=== PATIENT | male | born 1955 | race Caucasian/White ===

== ENCOUNTER 2021-03-27 07:42 | Observation (INO) ==
--- NOTE | 2021-03-15 15:06 | PAT Medication Instructions ---
Medication Instructions Date of Service March 15, 2021 Home Medications amlodipine 10 mg PO QAM atorvastatin 10 mg PO HS bupropion HCl 150 mg PO BID buspirone 10 mg PO BID cholecalciferol (vitamin D3) [Vitamin D3] 125 mcg PO QAM escitalopram oxalate 10 mg PO HS furosemide 20 mg PO QAM insulin glargine [Lantus U-100 Insulin] 1 unit SUBCUT UD insulin lispro [Humalog KwikPen Insulin] 23 - 30 unit SUBCUT TID lactobacillus combination no.4 [Probiotic] 3,000 mmu cells PO QAM losartan 100 mg PO QAM metformin 500 mg PO BID semaglutide [Ozempic] 1 mg SUBCUT WK tamsulosin 0.4 mg PO BID Continue as directed semaglutide [Ozempic] 1 mg SUBCUT WK DO NOT take the morning of surgery cholecalciferol (vitamin D3) [Vitamin D3] 125 mcg PO QAM furosemide 20 mg PO QAM insulin lispro [Humalog KwikPen Insulin] 23 - 30 unit SUBCUT TID lactobacillus combination no.4 [Probiotic] 3,000 mmu cells PO QAM losartan 100 mg PO QAM metformin 500 mg PO BID Take morning of surgery With a small sip of water, OTHERWISE NOTHING TO EAT OR DRINK AFTER MIDNIGHT: amlodipine 10 mg PO QAM bupropion HCl 150 mg PO BID buspirone 10 mg PO BID tamsulosin 0.4 mg PO BID Take evening before surgery atorvastatin 10 mg PO HS bupropion HCl 150 mg PO BID buspirone 10 mg PO BID escitalopram oxalate 10 mg PO HS insulin glargine [Lantus U-100 Insulin] 1 unit SUBCUT UD insulin lispro [Humalog KwikPen Insulin] 23 - 30 unit SUBCUT TID metformin 500 mg PO BID tamsulosin 0.4 mg PO BID Insulin Dependent Diabetic Patients * Test your blood sugar the morning of surgery * If Blood Sugar is GREATER THAN 150, take HALF of your regular dose of: insulin glargine [Lantus U-100 Insulin] take 12 units * If Blood Sugar is LESS THAN 150, DO NOT TAKE ANY: insulin glargine [Lantus U- 100 Insulin] Other Notes If you have any questions please call us at [phone] or [phone] or [phone] or [phone]
--- NOTE | 2021-03-16 14:09 | Anesthesiology Consultation ---
Date of Service March 16, 2021 Assessment & Plan (1) Encounter for pre-operative examination: - COVID screening: Per assessment on 03/16: Travel screen negative, no known COVID-19 positive contacts or current COVID-19 related symptoms. Patient vaccinated. Surgeon arranging preop COVID testing. Awaiting results. - Check BSG AM DOS - Hx Glidescope intubation: Left knee I&D (06/27/18): Grade view 1, Glidescope#4 at [facility] - S/P Left TKA (03/08/16): SAB at L4-L5 (x1 attempt) + PNB at [facility] - PCP office visit (03/13/21): "Reports that home lood sugars have been stable mostly in low 100's for past week but prior to that had been in elevated 300's. Today is 206. He has been limiting breads and sugars.. Increase glipizide to 2x daily with meals. Continue Metformin with NAC. We discussed carb reduction and Mediterranean diet. May have to discuss further medication for DM if glucose is not better controlled with current regimens. Continue following with orthopedic for left hipwe did discuss A1c may need to decrease before surgery will be done." Hgba1c significantly improved on 03/16/21 labs at 6.4% Chart Review Chart Review: Acceptable Risk for Surgery and Patient seen in Pre Admission Testing Teaching & Discussion Pre-Anesthesia Teaching/Discussion Notes: Instructed NPO after midnight before surgery,except medications with 15 cc of water. Medication instructions provided according to the PAT guidelines. History Surgery Operation Date: 03/27/21 14:45 Proposed Procedures p Right Total Knee Replacement - Serafin Hernandez MD Height/Weight Height: 5 ft 9 in Weight: 149.1 kg Allergies Allergy/AdvReac Type Severity Reaction Status Date / Time No Known Allergies Allergy Verified 03/15/21 10:33 Medications Home Medications Medication Instructions Recorded Confirmed Last Taken amlodipine 10 mg PO QAM 03/15/21 03/16/21 Unknown atorvastatin 10 mg PO HS 03/15/21 03/16/21 Unknown bupropion HCl 150 mg PO BID 03/15/21 03/16/21 Unknown buspirone 10 mg PO BID 03/15/21 03/16/21 Unknown cholecalciferol (vitamin D3) 125 mcg PO QAM 03/15/21 03/16/21 Unknown [Vitamin D3] escitalopram oxalate 10 mg PO HS 03/15/21 03/16/21 Unknown furosemide 20 mg PO QAM 03/15/21 03/16/21 Unknown insulin glargine [Lantus U-100 1 unit SUBCUT UD 03/15/21 03/16/21 Unknown Insulin] insulin lispro [Humalog KwikPen 23 - 30 unit SUBCUT TID 03/15/21 03/16/21 Unknown Insulin] lactobacillus combination no.4 3,000 mmu cells PO QAM 03/15/21 03/16/21 Unknown [Probiotic] losartan 100 mg PO QAM 03/15/21 03/16/21 Unknown metformin 500 mg PO BID 03/15/21 03/16/21 Unknown semaglutide [Ozempic] 1 mg SUBCUT WK 03/15/21 03/16/21 Unknown tamsulosin 0.4 mg PO BID 03/15/21 03/16/21 Unknown Past Medical History Medical History Anxiety and depression BPH (benign prostatic hyperplasia) Diabetes mellitus, type 2 IDDM History of kidney stones HTN (hypertension) Hyperlipidemia Morbid obesity SWETHA (obstructive sleep apnea) CPAP Osteoarthritis Urinary frequency Exercise / Class Metabolic Activity III < 4 Walking/Shop/Light housework (one FS (no CP, + SOB- chronic, unchanged)) Past Family History Family History Father Diabetes Past Surgical History Surgical History H/O hernia repair Abdominal H/O shoulder surgery Left History of arthroplasty of left knee Left knee I&D (06/27/18): Grade view 1, Glidescope#4 at [facility] History of carpal tunnel surgery Right History of colonoscopy History of left knee replacement Left TKA (03/08/16): SAB at L4-L5 (x1 attempt) + PNB at [facility] History of tooth extraction Hx of vasectomy Past Anesthesia History Difficult Airway ( Left knee I&D (06/27/18): Grade view 1, Glidescope#4 at [facility]) Patient reports mother had allergic reaction after surgery in the past. No further details. Denies terms malignant hyperthermia, pseudocholinesterase deficiency and was not told that family members needed genetic workup after mother had reaction. Patient had Left knee I&D (06/27/18) done under general and Left TKA (03/08/16) done under SAB + PNB- both at [facility] without issue. History of PONV No Hx of PONV and No Hx of Motion Sickness Social History Smoking Status: Former smoker Do You Dip or Chew Tobacco: No Smoking End Date: Quit 47 years ago Hx Alcohol Use: No Hx Substance Use: No substance use type: does not use Review of Systems Patient denies chest pain, shortness of breath, fever, chills, cough, wheezing, palpitations. Physical Exam Vital Signs VITALS BP 163/90 P 68 TEMP 98.6 SP02 96%RA RESP 18 PHYSICAL Full cervical extension range of motion. Full TMJ range of motion. TMD 4 finger breaths Mallampati Score 4 (small oral opening) Dentition: several missing teeth, + implant with missing crown (right upper side) Lungs: clear throughout to auscultation Cardiac: regular rate and rhythm, no murmurs noted Spine: normal Carotid arteries: negative bruit Extremities: no edema Very short, thick neck Lab Results Anesthesia Preop Results Results Anesthesia Widget: WBC 5.89 K/uL (4.8-10.8) 03/16/21 Hgb 14.7 g/dL (14.0-18.0) 03/16/21 Hct 42.6 % (42-52) 03/16/21 Plt 197 K/uL (130-400) 03/16/21 Na 139 mmol/L (136-145) 03/16/21 K 4.0 mmol/L (3.5-5.1) 03/16/21 Cl 106 mmol/L (98-107) 03/16/21 CO2 30 mmol/L (21-32) 03/16/21 BUN 17 mg/dl (7-18) 03/16/21 Creat 1.12 mg/dl (0.6-1.4) 03/16/21 Glucose Level 137 mg/dl (70-99) H 03/16/21 PT 10.8 Seconds (9.0-12.0) 03/16/21 PTT 25.9 Seconds (21.0-31.0) 03/16/21 INR 1.1 (0.9-1.1) 03/16/21 HA1c 6.4 % (4.5-5.6) H 03/16/21 Blood Type O Positive 03/16/21 Antibody Screen NEGATIVE 03/16/21 Testing Electrocardiogram Date: 03/16/21 Findings: + NSR @ (64) Chest X-Ray Date: 03/16/21 FINDINGS: Cardiomediastinal and hilar silhouettes are unchanged. Opacity of the right cardiophrenic angle suggests of a prominent epicardial fat pad redemonstrated. Calcific granuloma the lateral left midlung. Mild hyperinflation. There is no pneumothorax, pleural effusion, airspace consolidation or overt pulmonary edema. Degenerative changes of the shoulders and spine. IMPRESSION: No acute process.
[~2021-03-27 07:42] MED LIST: ACETAMINOPHEN 500 MG TAB PO SCH; BUPIVACAINE 0.5 % 5 MG/1 ML PF 10ML VIAL ONE; BUPIVACAINE LIPOSOME/PF 266 MG, BUPIVACAINE/EPINEPHRINE 50 ML, SODIUM CHLORIDE 0.9% 30 ... INFIL SCH; FAMOTIDINE 20 MG TAB PO SCH; GABAPENTIN 300 MG CAP PO SCH; LR 500ML BOLUS, THEN 15ML/HR IV SCH; LR 60ML/HR IV SCH; METOCLOPRAMIDE HCL 10 MG TABLET PO SCH; ROPIVACAINE 0.5% 5 MG/ML 30 ML VIAL ONE; Scopolamine 1 MG TDSY TD SCH; TRANEXAMIC ACID 1,000 MG **IV Intra-op IV SCH
--- NOTE | 2021-03-27 09:02 | History & Physical Bridge Note ---
Date of Service March 27, 2021 History & Physical Bridge Note I have examined the patient, reviewed the History & Physical and in the interval since the performance of the History & Physical I have noted the following changes of clinical significance: no changes noted
[2021-03-27] MEDS ORDERED: MIDAZOLAM HCL 1 MG/ML 2ML VIAL ONE (09:28)
[2021-03-27] MEDS ORDERED: fentaNYL citrate 100 MCG/2 ML VIAL ONE (09:29)
[2021-03-27] MEDS ORDERED: BUPIVACAINE 0.25% 30 ML VIAL ONE (10:54)
[2021-03-27] MEDS ORDERED: SODIUM CHLORIDE 0.9% PF 50 ML VIAL ONE (10:54)
[2021-03-27] MEDS ORDERED: BUPIVACAINE LIPOSOME 1.3% 266 MG/20 ML VIAL ONE (10:54)
[2021-03-27] MEDS ORDERED: EPINEPHrine INJ 1 MG/ML AMP ONE (10:55)
[2021-03-27] MEDS ORDERED: PROPOFOL IV EMULSION 10 MG/ML 20 ML VIAL IV ONE ×5 (10:58→12:55)
[2021-03-27] MEDS ORDERED: ONDANSETRON INJ 2 MG/ML 2 ML VIAL ONE (10:58)
[2021-03-27] MEDS ORDERED: LIDOCAINE 2% 2 ML VIAL/AMP(20MG/ML) INFIL ONE (10:58)
[2021-03-27] MEDS ORDERED: ATROPINE SULFATE 0.1 MG/ML 10ML SYR IV PRN (11:21)
[2021-03-27] MEDS ORDERED: HYDROmorphone INJ 1 MG/ML SYRINGE IV PRN (11:21)
[2021-03-27] MEDS ORDERED: ONDANSETRON INJ 2 MG/ML 2 ML VIAL IV PRN ×2 (11:21→14:51)
[2021-03-27] MEDS ORDERED: KETOROLAC 30 MG/ML VIAL IV PRN (11:21)
[2021-03-27] MEDS ORDERED: ePHEDrine sulfate 50 MG/ML AMP IV PRN (11:21)
[2021-03-27] MEDS ORDERED: VANCOMYCIN HCL 1000MG/20ML VIAL ONE (11:29)
--- NOTE | 2021-03-27 13:44 | Operative Report ---
Post Operative Report Pre & Post Diagnosis Operation Date: 03/27/21 10:40 Pre-Op Diagnosis: Right Knee Advanced Degenerative Joint Disease Post-Op Diagnosis: Right Knee Advanced Degenerative Joint Disease I identified the patient and participated in the time-out.: Yes Procedure Operation Date: 03/27/21 10:40 Actual Procedures p Right Total Knee Arthroplasty(Right) - Serafin Hernandez MD Surgeon Serafin Hernandez MD Casualty Insurance Claim Adjuster HECTOR Best Estimated Blood Loss 50 Findings Consistent with Post-Op Diagnosis Operative findings were advanced right knee DJD. He had extensive grade 4 [id number] disease of the medial and patellofemoral compartments. Fairly mild arthritic changes laterally. Very large soft tissue envelope Fluids 1000 cc Specimens Right knee sent to pathology. Drains None. Anesthesia Type Spinal MAC Complications None Disposition Accompanied Patient To Recovery: No Indications Patient is 65-year-old gentleman has had a long history of bilateral knee pain and discomfort. He underwent a left knee replacement 5 years ago which was complicated by a infection to a 2 and half years postop from a strep infection. He underwent an I&D and polyethylene exchange and antibiotics. He is resolved this infection. Has been off antibiotics for over a year. Is continued to bother by right knee pain discomfort. He had been scheduled for surgery previously but canceled due to the Covid epidemic. Now wants to proceed with right knee replacement. Description of Procedure Operative implants consist of: 1. Biomet Vanguard size 67.5 right posterior stabilized femoral component. 2. Biomet size 71 tibial tray with a 80 x 14 mm stem with a 5.0 offset and a small cruciate wing. 3. 10 mm posterior stabilized polyethylene insert. 4. 31 x 8 all polypatella. The patient was taken to the operating, identified, and placed on the operating table supine position but all contractors were properly padded. IV Avelox were provided by the anesthesia team. A spinal anesthetic and abductor canal block had provided holding area. Dean catheter was placed in a sterile fashion. Right thigh tip was then placed in the right lower extremities and prepped and draped in usual sterile fashion. The right leg was elevated exsanguinated with use of an Esmarch and turns placed at 3 mmHg. An anterior approach to the right knee was then performed to longitudinal incision centered with the patella. Sharp dissection was got throu gh subcutaneous this down the extensor mechanism. A medial parapatellar arthrotomy incision was made. Some subperiosteal dissection was carried out medially. The fat pad was resected from each patella tendon. Lateral patellofemoral ligament was released. Patella was subluxated laterally knee was flexed. The osteophyte taken off distal femur. The ACL and PCL were then released from the distal femur the tibia subluxated anteriorly. I decided to use an intramedullary tibial stem due to this patient's large size and deformity. The tibial eminence was resected. I then reamed the intramedullary canal up to a size 14. We used the IM reamer to cut the proximal tibia remove about 2 mm of bone from the medial side. We sized this to a size 71. A 5 mm offset stem was selected. The proximal tibia was then prepared for a 5 mm offset stem with a 14 x 80 mm stem. Is a small cruciate wing was placed. The tibial trial was placed. I did an debridement up to a size 15 in order to get this down appropriately. Attention drawn the femur. The distal femur was entered the sharp drop with intramedullary canal was suction. A right 6 degree valgus cutting guide was placed. This femoral cu tting block was pinned in place. Distal femoral cut was made to take an additional 5 mm off the distal femur due to his flexion contracture. The femur was then sized to a size 67.5. The AP cutting block was pinned parallel to the epicondylar axis which was 3 degrees of external rotation. The anterior cut, anterior chamfer, posterior cut, posterior chamfer cuts were made. The box cutting guide was placed in just slight lateral box cut was made to the knee was flexed. The remnants of the medial lateral menisci were excised. The osteophytes were taken off the posterior aspect of femur. A trial femoral component was placed. I then trialed the knee and the 10 mm insert fit most appropriately. Attention drawn the patella. The patella was cleaned of all soft tissues. He did have a large bony ossicle at the inferior pole of his patella but it was within the patella tendon we could not remove this. Patella thickness measured 23 mm in thickness was cut down to 15. Was sized to a size 31 patella. The lug holes were drilled for the 31 patella. The lateral osteophyte is moved. Patella button was placed. Knee was taken through range of motion patella tracked nicely with no thumbs test. Attention drawn to placing permanent components. All trial components were removed. A bone plug was placed in the distal femur to limit blood loss. A double batch of Palacos G cement was mixed with additional gram of vancomycin due to his multiple comorbidities and obesity. A Biomet size 67.5 Vanguard posterior stabilized femoral component was then placed followed by a 71 tibial tray with the stem and offset in small cruciate wing, along with a 10 mm posterior stabilized polyethylene insert and a 31 x 8 all polypatella. The knee was brought out into full extension until cement h ardened. Final cement checkup some performed. The pericapsular tissues were injected with 100 cc of combination of 20 cc of Exparel, 30 cc normal saline, 50 cc of quarter percent Marcaine with epinephrine. Patient did receive 1 g tranexamic acid. The tourniquet was then let down for turn time 83 minutes. Hemostasis reduced electrocautery. Extensor mechanism closed with combination 1 PDS suture #1 Vicryl suture in a [id number] fashion. Extensor mechanism checked and found to be intact the subcutaneous tissue then closed with 2 Dexon suture in a buried knot fashion skin was closed skin wicho. Legs then cleaned dried a sterile dressing was Xeroform, 4 x 4's, sterile cast padding, Miguel Angel bandage applied. Patient then transferred to the recovery room in stable condition. Patient tolerated procedure well and there were no complications. Santy Best, my physician judicial assistant, was present for the entire procedure. His assistance was essential and required for appropriate patient positioning, prepping and draping, surgical exposure, performing the technical details of the operation, placement the implants, closure of the wound, and placement of the sterile bandage. I attest to the content of the Intraoperative Record and any orders documented therein. Any exceptions are noted below.
--- NOTE | 2021-03-27 13:53 | Anesthesiology Progress Note ---
Date of Service March 27, 2021 Anesthesia Post Procedure Vital Signs Vital Signs: Temp Pulse Resp BP Pulse Ox 03/27/21 08:48 36.9 C 69 18 150/72 H 97 Transfer of Care Handoff Completed per policy Notes Mental Status: alert / awake / arousable Patient Amnestic to Procedure: Yes Nausea / Vomiting: adequately controlled Pain: adequately controlled Airway Patency, RR, SpO2: stable & adequate BP & HR: stable & adequate Hydration State: stable & adequate Neuraxial Anesthesia: was administered and sensory block is resolving Anesthetic Complications: no major complications apparent
[2021-03-27] MEDS ORDERED: PHARMACY GLYCEMIC MGMT CONSULT PRN (14:21)
--- NOTE | 2021-03-27 14:26 | XRay Report ---
XR knee RT 1 or 2V routine CLINICAL HISTORY: Postoperative evaluation. COMPARISON: Right knee radiographs March 16, 2021. FINDINGS: Alignment of the right knee arthroplasty is anatomic. Longstem tibial component is present . There is no periprosthetic fracture. No unexpected radiopaque foreign bodies are present. There are skin wicho. IMPRESSION: Expected findings following total right knee arthroplasty. ACT 112: Negative or not required by law. Electronically signed by: Anthony Causey M.D. 03/27/2021 2:25 PM
[2021-03-27] MEDS ORDERED: diphenhydrAMINE Capsule 25 MG CAP PO PRN (14:51)
[2021-03-27] MEDS ORDERED: DEXTROSE 50% 50 ML SYRINGE IV PRN ×2 (14:51→15:00)
[2021-03-27] MEDS ORDERED: HYDROmorphone INJ 0.5 MG/0.5 ML SYR IV PRN (14:51)
[2021-03-27] MEDS ORDERED: GLUCAGON FOR INJ 1 MG VIAL SQ PRN (14:51)
[2021-03-27] MEDS ORDERED: GLUCOSE 10 TABS/TUBE PO PRN ×2 (14:51→15:00)
[2021-03-27] MEDS ORDERED: GLUCOSE 40% GEL 15 GM TUBE PO PRN ×2 (14:51→15:00)
[2021-03-27] MEDS ORDERED: METOCLOPRAMIDE HCL INJ 5 MG/ML 2 ML VIAL IV PRN (14:51)
[2021-03-27] MEDS ORDERED: MAGNESIUM HYDROXIDE SUSP 30 ML UDC PO PRN (14:51)
[2021-03-27] MEDS ORDERED: NALOXONE HCL 0.4 MG/1 ML VIAL/CARP IV PRN (14:51)
[2021-03-27] MEDS ORDERED: ALUMINUM/MAGNESIUM SUSP 30 ML UDC PO PRN (14:51)
[2021-03-27] MEDS ORDERED: bisacodyL 10 MG SUPP PR PRN (14:51)
[2021-03-27] MEDS ORDERED: CARBOHYDRATES FOR HYPOGLYCEMIA PO PRN ×2 (14:51→15:00)
[2021-03-27] MEDS ORDERED: NON-FORMULARY MEDICATION (Semaglutide [Ozempic] 1 mg/dose (2 mg/1.5 mL) Pen Injector) SQ SCH (14:51)
[2021-03-27] MEDS ORDERED: GLUCAGON FOR INJ 1 MG VIAL IM PRN (15:00)
--- NOTE | 2021-03-27 15:02 | Pharmacy Report ---
Pharmacy Glycemic Short Note 2 - Date of Service March 27, 2021 - Glycemic Short BSG Results (Last 24 hours): 03/27/21 03/27/21 08:11 13:46 POC Glucose 170 H 144 H OUTPATIENT ANTIDIABETIC REGIMEN: * Lantus 25 units SC qAM, 75 units SC qPM * Humalog 23-30 units SC TIDM * Metformin 500 mg PO BIDM * Ozempic SC * HbA1c: 6.4% (03/16/21) ASSESSMENT: * CG is a 65 year old male POD #0 s/p right TKA * No perioperative steroids administered * Preop BSG of 170 mg/dL, postop BSG of 144 mg/dL * Lantus/Humalog received last evening PLAN FOR INPATIENT GLYCEMIC CONTROL: * Hold outpatient oral diabetes medications * Basal insulin * Lantus 25 units SC x 1 postop * Lantus scale HS to provide 25-75 units * Reassess in AM * Bolus insulin * NovoLog per scale ACHS or Q6hrs while NPO * Goal Range: Low 110 mg/dL - High 140 mg/dL * Correction Factor: 10 mg/dL/unit * Nutritional / Prandial insulin per carb ratio of 1 unit per 4 grams CHO consumed * 0200 check with same parameters PLAN FOR DISCHARGE: * HbA1c of 6.4% suggests excellent outpatient glycemic control * Continue current regimen, provided patient is not experiencing hypoglycemia as an outpatient
[2021-03-27] MEDS ORDERED: INSULIN GLARGINE SOLOSTAR 100 UNITS/ML 3 ML PEN SC ONE (15:30)
[2021-03-27] MEDS: SODIUM CHLORIDE 0.9% 1000ML 1,000 ML IV SCH ×2 (15:36→22:07)
[2021-03-27] MEDS: INSULIN ASPART 100 UNITS/ML 3 ML PEN SC SCH ×3 (15:59→21:40)
[2021-03-27] MEDS: ACETAMINOPHEN 500 MG TAB PO SCH ×2 (16:02→21:42)
[2021-03-27] MEDS: Scopolamine CHECK PATCH PLACEMENT SCH (16:02)
[2021-03-27] MEDS: KETOROLAC 30 MG/ML VIAL IV SCH ×2 (16:03→21:42)
[2021-03-27] MEDS: ASCORBIC ACID 500 MG TAB PO SCH (16:04)
[2021-03-27] MEDS: ceFAZolin 2000MG 2,000 MG/15 ML SYR IV SCH (18:40)
[2021-03-27] MEDS ORDERED: TRANEXAMIC ACID / 0.7% NACL 1,000 MG/100 ML BAG IV SCH (19:30)
[2021-03-27] MEDS: oxyCODONE HCL IR 5 MG TAB (IMMEDIATE RELEASE) PO PRN (19:53)
[2021-03-27] MEDS ORDERED: INSULIN GLARGINE SOLOSTAR 100 UNITS/ML 3 ML PEN SC SCH (21:00)
[2021-03-27] MEDS ORDERED: ATORVASTATIN 10 MG TAB PO SCH (21:00)
[2021-03-27] MEDS ORDERED: ESCITALOPRAM OXALATE 10 MG TAB PO SCH (21:00)
[2021-03-27] MEDS ORDERED: SENNA 8.6 MG TAB PO SCH (21:00)
[2021-03-27] MEDS: DOCUSATE SODIUM 100 MG CAP PO SCH (21:41)
[2021-03-27] MEDS: TAMSULOSIN HCL 0.4 MG CAP PO SCH (21:41)
[2021-03-27] MEDS: buPROPion SR 150 MG TABCR PO SCH (21:41)
[2021-03-27] MEDS: busPIRone 5 MG TAB PO SCH (21:41)
[2021-03-27] MEDS: TAPENTADOL HCL ER 50 MG TABCR PO SCH (21:41)
[2021-03-27] MEDS: ASPIRIN 81 MG ECTAB PO SCH (21:43)
[2021-03-28] MEDS: Scopolamine CHECK PATCH PLACEMENT SCH ×2 (00:27→08:43)
[2021-03-28] MEDS ORDERED: INSULIN ASPART 100 UNITS/ML 3 ML PEN SC SCH ×2 (02:00)
[2021-03-28] MEDS: ceFAZolin 2000MG 2,000 MG/15 ML SYR IV SCH (02:38)
[2021-03-28] MEDS: KETOROLAC 30 MG/ML VIAL IV SCH ×2 (04:13→09:51)
[2021-03-28] MEDS: ACETAMINOPHEN 500 MG TAB PO SCH ×2 (05:55→14:02)
[2021-03-28 06:56] LABS: Hematocrit (blood only) 35.2 % (42-52); Mean Corpuscular Hemoglobin 29.5 pg (25-34); Mean Corpuscular Hgb Conc 34.1 g/dL (32-36); Mean Corpuscular Volume 86.5 fL (80-100); Mean Platelet Volume 11.3 fL (7.4-10.4); Platelet Count 177 K/uL (130-400); RDW Standard Deviation 44.5 fL (36.4-46.3); Red Blood Count 4.07 M/uL (4.7-6.1); White Blood Count 7.63 K/uL (4.8-10.8)
[2021-03-28 07:24] LABS: BUN Creatinine Ratio 17.9 (10-20); Calcium 8.1 mg/dl (8.5-10.1); Creatinine Clr Calc Pharmacy 99.3 ml/min; Est GFR (African American) 83.6 ml/min; Est GFR (Non-African American) 72.2 ml/min; Potassium 4.2 mmol/L (3.5-5.1)
[2021-03-28] MEDS: ASPIRIN 81 MG ECTAB PO SCH (08:41)
[2021-03-28] MEDS: DOCUSATE SODIUM 100 MG CAP PO SCH (08:41)
[2021-03-28] MEDS: ASCORBIC ACID 500 MG TAB PO SCH (08:42)
[2021-03-28] MEDS: buPROPion SR 150 MG TABCR PO SCH (08:42)
[2021-03-28] MEDS: TAMSULOSIN HCL 0.4 MG CAP PO SCH (08:42)
[2021-03-28] MEDS: busPIRone 5 MG TAB PO SCH (08:44)
[2021-03-28] MEDS: TAPENTADOL HCL ER 50 MG TABCR PO SCH (08:48)
[2021-03-28] MEDS: INSULIN ASPART 100 UNITS/ML 3 ML PEN SC SCH ×2 (08:55→12:40)
[2021-03-28] MEDS ORDERED: LOSARTAN POTASSIUM 50 MG TAB PO SCH (09:00)
[2021-03-28] MEDS ORDERED: CHOLECALCIFEROL 1,000 UNITS 25 MCG TAB PO SCH (09:00)
[2021-03-28] MEDS ORDERED: amLODIPine BESYLATE 5 MG TAB PO SCH (09:00)
[2021-03-28] MEDS ORDERED: FUROSEMIDE 20 MG TAB PO SCH (09:00)
[2021-03-28] MEDS ORDERED: INSULIN GLARGINE SOLOSTAR 100 UNITS/ML 3 ML PEN SC SCH (09:00)
[2021-03-28] MEDS ORDERED: MULTIVITAMIN TAB PO SCH (09:00)
[2021-03-28] MEDS ORDERED: LACTOBACILLUS ACIDOPHILUS 1 GM PACK PO SCH (09:00)
[2021-03-28] MEDS: oxyCODONE HCL IR 5 MG TAB (IMMEDIATE RELEASE) PO PRN ×2 (09:58→14:02)
--- NOTE | 2021-03-28 11:13 | Pharmacy Report ---
Pharmacy Glycemic Short Note 2 - Date of Service March 28, 2021 - Glycemic Short BSG Results (Last 24 hours): 03/27/21 03/27/21 03/27/21 13:46 15:25 17:18 Glucose POC Glucose 144 H 139 H 200 H 03/27/21 03/28/21 03/28/21 20:50 02:32 06:23 Glucose 171 H POC Glucose 101 H 128 H 03/28/21 08:28 Glucose POC Glucose 161 H OUTPATIENT ANTIDIABETIC REGIMEN: * Lantus 25 units SC qAM, 75 units SC qPM * Humalog 23-30 units SC TIDM * Metformin 500 mg PO BIDM * Ozempic SC * HbA1c: 6.4% (03/16/21) ASSESSMENT: 03/28/21: * Pt received total 77 units of insulin yesterday: 50 units basal and 27 units bolus * Fasting BSG today was elevated at 161 mg/dl. Continued with basal AM dose same as home dosing. * Increased HS basal dose scale based on BSGs * Post prandial BSG yesterday was at goal. Continued current Novolog parameters. 03/27/21: * CG is a 65 year old male POD #0 s/p right TKA * No perioperative steroids administered * Preop BSG of 170 mg/dL, postop BSG of 144 mg/dL * Lantus/Humalog received last evening PLAN FOR INPATIENT GLYCEMIC CONTROL: * Hold outpatient oral diabetes medications * Basal insulin: increase HS dose * Lantus 25 units SC qAM * Lantus scale HS to provide 35-60 units based on BSG * Bolus insulin: continued * NovoLog per scale ACHS or Q6hrs while NPO * Goal Range: Low 110 mg/dL - High 140 mg/dL * Correction Factor: 15 mg/dL/unit * Nutritional / Prandial insulin per carb ratio of 1 unit per 5 grams CHO consumed * 0200 check with same parameters PLAN FOR DISCHARGE: * HbA1c of 6.4% suggests excellent outpatient glycemic control * Continue current regimen, provided patient is not experiencing hypoglycemia as an outpatient
--- NOTE | 2021-03-28 14:01 | Progress Notes ---
DATE OF SERVICE: 03/28/2021. SUBJECTIVE: A 65-year-old gentleman postop day 1 from a right knee replacement. He is doing okay. Mild amount of pain. Doing okay with pain pills. No chest pain or shortness of breath. Not feeling dizzy or lightheaded. He is really hoping to go home today. OBJECTIVE: VITAL SIGNS: Temperature 36.8. Vital signs are stable. PHYSICAL EXAMINATION: GENERAL: Shows a pleasant middle-aged male. He is sitting up in bed, looks pretty comfortable. LUNGS: Clear to auscultation. CARDIOVASCULAR: Regular rate and rhythm. ABDOMEN: Soft, nontender, nondistended. EXTREMITIES: Grossly neurovascularly intact except as follows. Examination of the right knee and le g reveals the leg to be well aligned. Dressing is clean, dry and intact. He can dorsiflex and plant arflex his foot appropriately. He can do a straight leg raise with a bit of a lag and significant di fficulty. Brisk refill. LABORATORY DATA: Hemoglobin 12.0. Hematocrit 35.2. Electrolytes are stable. ASSESSMENT: A 65-year-old gentleman postoperative day 1 from right knee replacement, doing pretty we ll. Pain has been reasonably well controlled. He is neurologically intact. PLAN: 1. DVT prophylaxis including thigh-high TEDs, SCDs, and aspirin twice a day. 2. PT, OT, weightbear as tolerated. Right total knee protocol. 3. Pain control, doing okay with current pain regimen. 4. Disposition: Plan to discharge to home with some home health later today if doing okay painwise a nd if does okay in therapy. Job ID: [id number]
[2021-03-29] MEDS ORDERED: INSULIN ASPART 100 UNITS/ML 3 ML PEN SC SCH (02:00)
--- NOTE | 2021-03-31 20:50 | Discharge Summary ---
Date of Service March 31, 2021 Discharge Data Procedures Performed Operation Date: 03/27/21 10:40 Actual Procedures p Right Total Knee Arthroplasty(Right) - Serafin Hernandez MD Hospital Course (1) Status post total right knee replacement: This is a 66 year old patient admitted on 03/27/21 and underwent total knee arthroplasty. He tolerated the procedure well and there were no complications. Transferred to the PACU post op and later to the orthopedic floor for further care. He was given ancef for antibiotic prophylaxis. He was also given DORIE stockings, SCDs, and aspirin for DVT prophylaxis. Hemoglobin, hematocrit, and vital signs were monitored during his hospital stay and remained stable. Did not require any blood transfusions. There were no complications during his hospital stay. By post op day #1 the patient was tolerating a diabetic diet, pain was reasonably controlled with oral pain medicine, and he was participating in physical therapy. On post op day #1 the patient was discharged home and set up with home health care. He was given printed discharge instructions including prescriptions for extra strength tylenol, aspirin, defadroxil, and oxycodone. Continue physical therapy, weight bearing as tolerated. Continue DORIE stockings. Follow up approximately 2 weeks post op or sooner if there are problems or concerns. Coding Level of Care Code None Diagnoses Status post total right knee replacement Z96.651
== END 2021-03-28 16:00 | disposition home health service (06) ==
LOC: ASU 07:42 → 3E 07:42